=== PATIENT | female | born 1970 ===

== ENCOUNTER → 2018-02-21 15:08 | Outpatient (REF) | payer OTHER, SELFPAY | LOC: LAB 15:08 | PROVIDERS: Visit Provider Oral & Maxillofacial Surgery | DX: H92.11 Otorrhea, right ear (principal) | CPT/HCPCS: 87070; 87075; 87077; 87147; 87186; 87205 ==

== ENCOUNTER → 2018-05-18 15:49 | Outpatient (REF) | payer OTHER, SELFPAY | LOC: LAB 15:49 | PROVIDERS: Visit Provider Oral & Maxillofacial Surgery | DX: H60.61 Unspecified chronic otitis externa, right ear (principal) | CPT/HCPCS: 87102 ==